=== PATIENT | male | born 1970 | race Caucasian/White ===

== ENCOUNTER → 2021-09-25 | Day surgery (SDC) | payer OTHER ==
[~2021-09-25] VITALS: Ht 182.9 cm; Wt 91.4 kg
[~2021-09-25] MED LIST: AMOXICILLIN500 MG PO; CHANTIX1 MG PO; DIOVAN40 MG PO; EFFEXOR XR37.5 MG PO; LIPITOR 10MG TA10 MG PO; LIPITOR20 MG PO; METFORMIN HCL500 MG PO; PERCOCET 5-3251 EACH PO; STEGLATRO5 MG PO; VITAMIN D3125 MC2 PO; VOLTAREN **OUT50 MG PO
[2021-09-25 06:31] LABS: HCT 45.1 % (42.0-52.0); HGB 15.4 g/dl (13.2-18.0); MCH 31.4 pg (25.0-31.0); MCHC 34.1 g/dL (32.0-36.0); MCV 91.9 fL (78.0-100.0); MPV 10.6 fL (6.0-9.5); RBC 4.91 M/uL (4.70-6.00); RDW 13.1 % (11.5-14.0); WBC 8.9 K/uL (4.0-10.5)
[2021-09-25 07:01] LABS: ALBUMIN 3.8 g/dL (3.4-5.0); ALKALINE PHOSHATASE 89 U/L (46-116); ALT 28 U/L (16-63); AST <5 U/L (15-37); BILIRUBIN - TOTAL 0.3 mg/dL (0.2-1.0); BUN 13 mg/dL (7-18); BUN/CREAT RATIO (CALC) 17.3 RATIO; CHLORIDE 103 mmol/L (98-107); CO2 (BICARBONATE) 20 mmol/L (21-32); CREATININE 0.75 mg/dL (0.67-1.17); GLOBULIN (CALCULATION) 2.8 g/dL; GLUCOSE 231 mg/dL (74-106); POTASSIUM 3.7 mmol/L (3.5-5.1); TOTAL PROTEIN 6.6 g/dL (6.4-8.2)
== END | disposition home or self-care (01) ==
LOC: FAS 05:52
PROVIDERS: Orthopaedic Surgery
DX: S83.242A Other tear of medial meniscus, current injury, left knee, initial encounter (principal); M23.012 Cystic meniscus, anterior horn of medial meniscus, left knee; E11.9 Type 2 diabetes mellitus without complications; I25.2 Old myocardial infarction; F17.210 Nicotine dependence, cigarettes, uncomplicated; Z88.1 Allergy status to other antibiotic agents; Z79.84 Long term (current) use of oral hypoglycemic drugs; X58.XXXA Exposure to other specified factors, initial encounter
CPT/HCPCS: 36415; 80053; 93005; J2250; J2405; J2704; J3010; J7120